=== PATIENT | female | born 1995 | race Two or more races ===

== ENCOUNTER 2021-07-06 14:49 | Observation (INO) | payer MEDICAID ==
[~2021-07-06] VITALS: Ht 152.4 cm; Wt 64.4 kg
[2021-07-06 16:19] LABS: BASOPHILS % 0.3 % (0.0-2.0); EOSINOPHILS % 0.5 % (0.0-5.0); HEMATOCRIT. 38.2 % (36.0-48.0); HEMOGLOBIN. 12.6 g/dL (12.0-16.0); LYMPHOCYTES % 15.6 % (20.0-50.0); MEAN CORPUSCULAR HEMOGLOBIN 27.4 pg (28.0-32.0); MEAN CORPUSCULAR VOLUME 83.5 fL (81.0-99.0); MEAN PLATELET VOLUME 8.6 fl (7.4-10.4); NEUTROPHILS % 78.6 % (40.0-76.0); PLATELET 295 x1000/uL (130-400); RED BLOOD CELL COUNT 4.58 mill/uL (4.2-5.4); RED CELL DISTRIBUTION WIDTH 14.2 % (11.6-14.6)
[2021-07-06 16:29] LABS: CHLORIDE 111 mEq/L (98-107)
[2021-07-06] MEDS ORDERED: DEXT 5%/LACTATED RINGERS 1,000 ML IV SCH (17:15)
[2021-07-06 18:48] LABS: FIBRINOGEN 539 mg/dL (200-400); INR 0.9; PARTIAL THROMBOPLASTIN TIME < 21.0 sec (23.4-31.0); PROTHROMBIN TIME 9.7 sec (9.6-11.0)
== END 2021-07-06 18:50 | disposition home or self-care (01) ==
LOC: 8 EST LDRP 14:49
PROVIDERS: ADMIT Obstetrics & Gynecology; ATTEND Obstetrics & Gynecology
DX: O36.5930 Maternal care for other known or suspected poor fetal growth, third trimester, not applicable or unspecified (principal); O26.893 Other specified pregnancy related conditions, third trimester; R10.9 Unspecified abdominal pain; Z3A.36 36 weeks gestation of pregnancy
CPT/HCPCS: 36415; 59025; 76805; 76818; 80053; 84550; 85025; 85384; 85610; 85730; G0378; 99281; G0379